=== PATIENT | female | born 1945 | race African-American/Black ===

== ENCOUNTER 2017-01-31 09:28 | Emergency (ER) | payer MEDICARE ==
[2017-01-31 10:10] LABS: #Basophils 0.1 thou/uL (0.0-0.2); #Eosinphils 0.1 thou/uL (0.0-0.7); #Lymphocytes 3.4 thou/uL (1.20-3.40); #Monocytes 0.6 thou/uL (0.11-0.59); #Neutrophils 4.7 thou/uL (1.40-6.50); %Basophils 1.4 % (0.0-1.0); %Eosinophils 1.3 % (0.0-10.0); %Lymphocytes 37.9 % (21.0-51.0); %Monocytes 6.6 % (0.0-10.0); Hematocrit 40.5 % (36.0-47.0); Mean Platelet Volume 8.7 fL (7.4-10.4); Red Blood Cell (RBC) Count 4.56 mill/uL (4.20-5.40)
[2017-01-31 10:12] LABS: Bilirubin Negative (Negative); Blood, Urine Negative (Negative); Glucose, Urine (Dipstick) >=1000 mg/dL (Negative); Ketone, Urine Negative (Negative); Nitrite Negative (Negative); Protein, Urine (Dipstick) Trace mg/dL (Neg-Trace); Urobilinogen 0.2 mg/dL (0.2-1.0)
[2017-01-31 10:14] LABS: Bacteria/HPF None Seen HPF (None Seen); Hyaline Casts/LPF 4-6 HYALINE CAST LPF (0-3 Hyaline); RBC/HPF 0-3 HPF (0-3)
[2017-01-31 10:32] LABS: ALT (SGPT) 19 U/L (8-55); AST (SGOT) 19 U/L (5-34); Alkaline Phosphatase 85 U/L (40-150); Anion Gap 13 mmol/L (10-20); BUN (Urea Nitrogen) 15 mg/dL (9.8-20.1); Bilirubin, Total 0.3 mg/dL (0.2-1.2); Calc. Creatinine Clearance 0 mL/min (70-130); Calcium 9.8 mg/dL (7.8-10.44); Carbon Dioxide 24 mmol/L (23-31); Chloride 105 mmol/L (98-107); Estimated GFR-MDRD 67; Globulin 4.2 g/dL (2.4-3.5)
--- NOTE | 2017-01-31 12:10 | RAD ---
CHEST TWO VIEWS: HISTORY: Dyspnea. CHF. COMPARISON: None. FINDINGS: The cardiac silhouette is at the upper limits of normal in size. The pulmonary vasculature is unrem arkable. The mediastinum is midline. There is no lobar consolidation, pneumothorax, or pleural flu id apparent. IMPRESSION: Borderline cardiomegaly. No edema is evident. POS: [facility]
== END 2017-01-31 14:15 | disposition home or self-care (01) ==
LOC: ERS 09:28
DX: R60.0 Localized edema (principal); E11.9 Type 2 diabetes mellitus without complications; I10 Essential (primary) hypertension; Z79.899 Other long term (current) drug therapy
CPT/HCPCS: 36415; 36416; 71020; 80053; 81003; 81015; 83880; 85025

== ENCOUNTER 2018-07-06 08:49 | Emergency (ER) | payer MEDICARE, MEDICAID ==
--- NOTE | 2018-07-06 10:11 | RAD ---
FXR Ankle Lt 3 View STANDARD History: [Edema, swelling] Comparison: None. Findings: Moderate bimalleolar edema. Ossification along the deltoid ligament indicating prior injury . Moderate vascular calcifications. No acute fracture or malalignment. Moderate dorsal calcaneal spur with thickened and partially calcified Achilles tendon. Impression: 1. Bimalleolar edema can be seen with cellulitis versus venous insufficiency. 2.Thickened partially calcified Achilles tendon suggesting chronic tendinosis.
--- NOTE | 2018-07-06 10:16 | RAD ---
LEFT FOOT 3 VIEWS: Date: 07/06/18 HISTORY: Left foot swelling for 2 days without injury or trauma. FINDINGS: There is some generalized soft tissue swelling of the foot, particularly dorsally over the forefoot. Degenerative changes are noted. Prominent vascular calcifications. 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 No evidence for acute fracture or dislocation. IMPRESSION: Soft tissue swelling with arthrosis and degenerative change without acute fracture or dislocation. Pr ominent vascular calcifications. POS: OFF
== END 2018-07-06 11:13 | disposition home or self-care (01) ==
LOC: ERS 08:49
DX: M79.89 Other specified soft tissue disorders (principal); I10 Essential (primary) hypertension; E11.9 Type 2 diabetes mellitus without complications